=== PATIENT | female | born 1990 | race Two or more races ===

== ENCOUNTER 2025-03-27 19:54 | Observation (INO) | payer SELFPAY ==
[2025-03-27] VITALS (9 sets, daily range): BP systolic 136; BP diastolic 71; PULSE 99–116; RESP 18–99; TEMP 36.8; O2SAT 97–99; BMI 25.0
== END 2025-03-27 20:40 | disposition home or self-care (01) ==
PROVIDERS: Admitting Provider Obstetrics & Gynecology; Visit Provider Obstetrics & Gynecology
DX: O46.93 Antepartum hemorrhage, unspecified, third trimester (principal); Z3A.36 36 weeks gestation of pregnancy
CPT/HCPCS: 59025; 59899

== ENCOUNTER 2025-04-18 01:20 | Observation (INO) | payer SELFPAY ==
[2025-04-18 01:32] VITALS: BMI 25.7
[2025-04-18 01:39] VITALS: BP 120/67; PULSE 110; RESP 17; RESP 98; TEMP 37
== END 2025-04-18 02:23 | disposition home or self-care (01) ==
PROVIDERS: Admitting Provider Obstetrics & Gynecology; Visit Provider Obstetrics & Gynecology
DX: O26.853 Spotting complicating pregnancy, third trimester (principal); Z3A.39 39 weeks gestation of pregnancy
CPT/HCPCS: 59025; 59899

== ENCOUNTER 2025-04-21 15:18 | Inpatient (IN) | payer MEDICAID, SELFPAY ==
[2025-04-21] VITALS (107 sets, daily range): BP systolic 107–141; BP diastolic 51–78; PULSE 87–133; RESP 16–98; TEMP 36.9–38.1; O2SAT 96–100; BMI 25.6
[2025-04-21 15:51] LABS: ROM Kit Exp Date# 01/28/28; ROM Kit Lot # 5810437; Swb Mxed in Solvent 1 min? Yes
[2025-04-21 15:52] LABS: ROM Swab Mixed By: AYONJ; Rupture of Fetal Membranes Negative (Negative)
--- NOTE | 2025-04-21 16:14 | XR_ITS ---
Examination: Biophysical profile, ultrasound Date and time of exam: April 21, 2025, 1629 hrs. Indications: Leaking amniotic fluid today Technique: Multiple transabdominal sonographic images of the pelvis abdomen obtained. Attention is directed to the breathing movement, gross body movement, amniotic fluid volume and tone. Findings: Amniotic fluid index 9.5 cm Total biophysical profile is 8 of 8. breathing movement is 2. Gross body movement is 2. tone is 2. Qualitative amniotic fluid volume is 2 Impression: Biophysical profile is 8 of 8.
--- NOTE | 2025-04-21 16:14 | XR_ITS ---
Examination: Complete OB ultrasound greater than 14 weeks Date and time of exam: April 21, 2025, 1637 hrs. Indications: Leaking amniotic fluid today. Findings: Viable intrauterine single fetus with single amniotic sac presentation cephalic. hall monitor 158 BPM. Placenta anterior grade 2. Three-vessel umbilical cord seen. Amniotic fluid index 5.1 cm. spine anterior. Cervix 3.5 cm. Ovaries obscured by bowel gas. Composite estimated gestational age based on BPD, head circumference, abdominal circumference, femur length is 40 weeks 2 days Estimated weight 4179.1 g. Survey of intracranial anatomy, spinal anatomy, abdominal anatomy, four-chamber heart performed with no abnormalities identified. Impression: Viable intrauterine gestation cephalic presentation.
[2025-04-21 16:38] LABS: Basophils # (Auto) 0.1 Thou/mm3 (0.0-0.2); Basophils % (Auto) 0 % (0-2.5); Eosinophils # (Auto) 0.6 Thou/mm3 (0.0-0.5); Eosinophils % (Auto) 4 % (0-10); Hematocrit 31.5 % (36.0-46.0); Hemoglobin 9.7 g/dL (12.0-16.0); Immature Granulocytes Auto 0.23 Thou/mm3 (0.00-0.00); Lymphocytes # (Auto) 1.9 Thou/mm3 (1.0-4.8); Lymphocytes % (Auto) 14 % (10-50); Mean Corpuscular HGB Conc 30.8 g/dl (31.0-37.0); Mean Corpuscular Hemoglobin 24.9 pg (25.0-35.0); Mean Corpuscular Volume 81 fL (80-100); Monocytes # (Auto) 1.1 Thou/mm3 (0.0-0.8); Monocytes % (Auto) 8 % (0-12); Neutrophils # (Auto) 9.9 Thou/mm3 (1.8-7.7); Neutrophils % (Auto) 72 % (37-80); Nucleated Red Blood Cell # 0.02 Thou/mm3 (0.00-0.00); Nucleated Red Blood Cell % 0 /100 WBC (0); Platelet Count 292 Thou/mm3 (140-440); RDW Standard Deviation 52.4 fL (36.4-46.3); Red Blood Count 3.89 Miln/mm3 (4.00-5.20); White Blood Count 13.8 Thou/mm3 (3.6-11.0)
[2025-04-21] MEDS: RINGERS LACTATED 1000 ML 1,000 ML 100 ML IV (17:35)
[2025-04-21] MEDS: fentaNYL CIT INJ 50 mCg/ML AMP 2ML 100 MCG IVP (20:42)
[2025-04-21 20:58] LABS: Syphilis Reactive (Nonreactive)
[2025-04-21 21:00] LABS: MHATP/TP-PA* See Sep Rpt
[2025-04-21] MEDS: ACETAMINOPHEN IVPB 1,000 MG/100 ML VIAL 250 MG IV (21:46)
[2025-04-21] MEDS: Ampicillin Inj 2,000 MG in SODIUM CHLORIDE 0.9% (POP) 100 ML 200 MG IV (22:18)
[2025-04-21] MEDS: GENTAMICIN/NS 80 MG IVPB 80 MG in PRE-MIXED 1 BAG 50 MG IV (23:04)
[2025-04-22] VITALS (156 sets, daily range): BP systolic 94–136; BP diastolic 52–83; PULSE 84–194; RESP 15–42; TEMP 36.3–37.2; O2SAT 86–100
[2025-04-22] MEDS: OXYTOCIN in NS 30 units 30 UNIT/500 ML BAG IV (02:54)
[2025-04-22] MEDS: RINGERS LACTATED 1000 ML 1,000 ML 100 ML IV (03:11)
[2025-04-22] MEDS: Ampicillin Inj 2,000 MG in SODIUM CHLORIDE 0.9% (POP) 100 ML 200 MG IV (05:33)
--- NOTE | 2025-04-22 06:59 | PD.LDHP ---
Documentation for date of: 04/21/25 OB Labor/Induct. HPI History of Present Illness Chief complaint: Leaking and contractions : 4 Para: 2 Term pregnancies: 2 pregnancies: 0 Living children: 2 History of Abortions: Spontaneous and Elective: 1 History of Vaginal deliveries: 2 History of sections: No History of : No REESE: 04/21/25 Gestational Age (weeks): 40 Gestational Age (days): 0 History of present illness: 34-year-old 4 para 2 presenting to labor and delivery triage at 40 weeks and 0 days with leaking and contractions every 5 to 10 minutes. When patient presented to the triage room she was noted to have gross leaking of fluids soaking her pants as well as soaking the Chux pad. Cervical exam was 450 and -3 patient was admitted for labor/augmentation. Patient receives care at [facility] with Dr. Mike. GBS unknown. History of Present Adequate Care: Yes Labs Labs: Positive: RPR and Rubella Titre, Negative: Hepatitis B, HIV, Chlamydia, Gonorrhea and Group Beta Strep and Unknown: Herpes Type 1, Herpes Type 2 and Covid-19 Past Medical History Surgical History SURGICAL: Negative Section Meds Home Medications and Allergies Home Medications ?Medication ?Instructions ?Recorded ?Confirmed ?Type ferrous sulfate 325 mg (65 mg 325 mg PO QDAY 04/21/25 04/21/25 History iron) tablet vitamins no.102-iron 90 1 cap PO QDAY 04/21/25 04/21/25 History mg-folate 1 mg-dha 200 mg capsule Allergies Allergy/AdvReac Type Severity Reaction Status Date / Time No Known Allergies Allergy Unknown Verified 04/22/25 03:58 OB Exam Physical Exam Vital signs: Temp Pulse Resp BP Pulse Ox O2 Del Method 98.7 F 114 H 18 126/69 98 Room Air 04/22/25 00:53 04/22/25 06:29 04/21/25 23:57 04/22/25 06:29 04/22/25 06:57 04/22/25 00:53 Constitutional Constitutional: no acute distress Routine HEENT Exam Head: Present normocephalic and atraumatic Eye: Present EOMI and PERRL ENT: Present mucous membranes moist Routine Neck Exam Neck: Present supple and trachea midline Routine Cardiovascular Exam Cardiovascular: Present RRR Routine Abdominal Exam Abdominal: Present soft and normoactive bowel sounds Detailed Labor and Delivery Exam Dilation (cm): 4.5 Effacement (%): 50 Cervix position: mid station: -3 Presentation: Vertex Routine Extremities Exam Extremities: Present full ROM Routine Skin Exam Skin: Present intact, dry and warm Routine Neurological Exam Neurological: Present alert, oriented X3 and CN II-XII intact Routine Psychiatric Exam Psychiatric: Present normal affect and normal thought process OB Results Labs 04/21/25 16:20 Labs: Short CBC 04/21/25 Range/Units 16:20 WBC 13.8 H (3.6-11.0) Thou/mm3 Hgb 9.7 L (12.0-16.0) g/dL Hct 31.5 L (36.0-46.0) % Plt Count 292 (140-440) Thou/mm3 OB Assessment & Plan Assessment and Plan (1) Spontaneous rupture of membranes: Status: Acute Assessment and plan: 34-year-old 4 para 2 presenting with spontaneous rupture of membranes and early labor Admit to inpatient status for labor/augmentation as needed IV access, labs to include CBC type and screen RPR Start ampicillin for unknown GBS Epidural when desired Continuous maternal monitoring Anticipate vaginal delivery
[2025-04-22] MEDS: ceFAZolin/D5W 2 GM IV 2 GM/100 ML BAG IV ×3 (08:17→21:52)
[2025-04-22] MEDS: FAMOTIDINE INJ 10 MG/ML VIAL 2 ML 20 MG IV (08:18)
--- NOTE | 2025-04-22 08:18 | PD.LDPN ---
Documentation for date of: 04/22/25 OB Labor Progress Note Pain Control Pain control: epidural Pelvic Exam Dilation (cm): c Effacement (%): 100 station: +1 Amniotic membrane status: Ruptured Contractions Monitor mode: External Contraction frequency: 2-4 Contraction intensity: Moderate Status status: Category l Assessment and Plan Pitocin rate (mU/min): 5 Assessment: active labor Comments: Patient was complete around 5:00 in the morning and labored down till 7:00 in the morning when I took over her care. She was C/100/+1 we started pushing at 715 till approximately 810. Patient has a suspected 10 pound baby and its direct OP. I did attempted a vacuum x 2 due to maternal exhaustion and there were 2 pop-off's and very little descent of the head. At this point patient is consented for a primary low-transverse section. She states her last baby was born 7 years ago and was over 10 pounds she states she has required vacuum deliveries for all of her children so far. Patient is consented about the risks of procedure including bleeding infection blood transfusion damage to bowel bladder blood vessels other organs and prolonged hospital stay should any complications occur. All consents were signed all questions were answered. Father the baby is at bedside. Of note this is a new father of the baby.
[2025-04-22] MEDS: KETOROLAC INJ 30 MG/ML VIAL IVP (10:27)
[2025-04-22] MEDS: METHYLERGONOVINE INJ 0.2 MG/ML VIAL IM (10:36)
[2025-04-22] MEDS: TRANEXAMIC ACID 1,000 MG IVPB 1,000 MG/100 ML BAG 200 MG IV (10:36)
[2025-04-22] MEDS: HYDROmorphone INJ 2 MG/ML VIAL 1 MG IVP (10:54)
[2025-04-22] MEDS: OXYTOCIN in NS 20 units 20 UNIT/1,000 ML BAG 125 UNIT IV ×3 (10:58→23:36)
[2025-04-22 11:09] LABS: Basophils # (Auto) 0.0 Thou/mm3 (0.0-0.2); Basophils % (Auto) 0 % (0-2.5); Eosinophils # (Auto) 0.0 Thou/mm3 (0.0-0.5); Eosinophils % (Auto) 0 % (0-10); Immature Granulocytes Auto 0.10 Thou/mm3 (0.00-0.00); Lymphocytes # (Auto) 1.8 Thou/mm3 (1.0-4.8); Lymphocytes % (Auto) 14 % (10-50); Mean Corpuscular HGB Conc 29.9 g/dl (31.0-37.0); Mean Corpuscular Hemoglobin 24.5 pg (25.0-35.0); Mean Corpuscular Volume 82 fL (80-100); Monocytes # (Auto) 0.8 Thou/mm3 (0.0-0.8); Monocytes % (Auto) 6 % (0-12); Neutrophils # (Auto) 10.3 Thou/mm3 (1.8-7.7); Neutrophils % (Auto) 79 % (37-80); Nucleated Red Blood Cell # 0.02 Thou/mm3 (0.00-0.00); Nucleated Red Blood Cell % 0 /100 WBC (0); Platelet Count 200 Thou/mm3 (140-440); RDW Standard Deviation 55.0 fL (36.4-46.3); Red Blood Count 2.45 Miln/mm3 (4.00-5.20); White Blood Count 12.9 Thou/mm3 (3.6-11.0)
[2025-04-22 11:20] LABS: Hematocrit 20.1 % (36.0-46.0); Hemoglobin 6.0 g/dL (12.0-16.0)
--- NOTE | 2025-04-22 15:33 | PC.NURSE ---
Addendum entered by Brittney Lopez RN, RN 04/22/25 15:46: 1119-rapid infuser in room. Original Note: 1034-Kelton SHAIKH called and notified patient has had a few clots. Orders received to give methergine and TXA 1035-Beatriz Lyles RN called and notified, asked to bring meds. 1040-Kelton SHAIKH called and notified of substantial amount of clots and fundus to the right. RN stated she is concerned; Kelton SHAIKH en route to bedside for bakri balloon placement. Charge notified; hemorrhage cart brought in room 1045-Kelton SHAIKH at bedside. 1050-large amount of clots manually expelled by Dr. Melara. Bakri balloon placed, 500mL. Stat CBC, bear hugger, and PRBCs ordered. Rapid transfuser en route
[2025-04-22 18:05] LABS: Basophils # (Auto) 0.0 Thou/mm3 (0.0-0.2); Basophils % (Auto) 0 % (0-2.5); Eosinophils # (Auto) 0.0 Thou/mm3 (0.0-0.5); Eosinophils % (Auto) 0 % (0-10); Hematocrit 30.5 % (36.0-46.0); Hemoglobin 9.8 g/dL (12.0-16.0); Immature Granulocytes Auto 0.12 Thou/mm3 (0.00-0.00); Lymphocytes # (Auto) 2.1 Thou/mm3 (1.0-4.8); Lymphocytes % (Auto) 15 % (10-50); Mean Corpuscular HGB Conc 32.1 g/dl (31.0-37.0); Mean Corpuscular Hemoglobin 26.4 pg (25.0-35.0); Mean Corpuscular Volume 82 fL (80-100); Monocytes # (Auto) 1.0 Thou/mm3 (0.0-0.8); Monocytes % (Auto) 7 % (0-12); Neutrophils # (Auto) 10.7 Thou/mm3 (1.8-7.7); Neutrophils % (Auto) 76 % (37-80); Nucleated Red Blood Cell # 0.02 Thou/mm3 (0.00-0.00); Nucleated Red Blood Cell % 0 /100 WBC (0); Platelet Count 202 Thou/mm3 (140-440); RDW Standard Deviation 50.4 fL (36.4-46.3); Red Blood Count 3.71 Miln/mm3 (4.00-5.20); White Blood Count 14.0 Thou/mm3 (3.6-11.0)
--- NOTE | 2025-04-22 18:44 | OBDSUM_ITS ---
Data (Ramos) Data Hx Section: No Maternal Blood Type: O Pos Rubella Titre: Positive RPR: Reactive Labs: Positive: RPR (History of syphilis tPA pending), Negative: Hepatitis B, HIV, Chlamydia and Gonorrhea and Unknown: Group Beta Strep : 4 Term: 2 : 0 Livin Abortions: Spontaneous & Theraputic: 1 Delivery Data (Ramos) Labor Data Initiation of labor: Augmentation Induction/Augmentation Agent: Pitocin ROM date: 04/21/25 ROM time: 14:25 Amniotic membrane rupture type: Spontaneous Amniotic fluid description: Clear Delivery Data EDC: 04/22/25 EDC calculated by:: LMP/early US confirmation Date of arrival to unit: 04/21/25 Onset of labor date: 04/21/25 Onset of labor time: 20:20 Complete dilation date: 04/22/25 Complete dilation time: 04:56 [place] delivery date: 04/22/25 [place] delivery time: 08:44 Gestational age (weeks): 40 Gestational age (days): 1 Placenta delivery date: 04/22/25 Placenta delivery time: 08:45 Stage 1 total time: Labor - Stage 1 Duration 8 hours and 36 minutes Delivered by: YAJAIRA SHAIKH Delivery nurse: FARA ESPARZA RN [place] nurse: TIANA FONTANEZ RN Weapons Electrical Engineering Officer at delivery: Yes (LUZ SHAIKH) Support person(s) at delivery: FOB Other staff at delivery: DODIE DON RN Delivery Method Delivery method: Low Transverse Presentation: Vertex position: OP Anesthesia Type Anesthesia Type: Epidural Delivery Room Medications Delivery room medications: Pitocin 20 u IV Placenta Placenta delivery description: Spontaneous Cord blood sent to lab: Yes cord blood collection: Cord Blood Type, Arterial Cord Blood Gas and Venous Cord Blood Gas EBL Estimated blood loss (ml): 500 Umbilical Cord cord description: 3 Vessels Additional Procedures See op report for further details Complications Complications: None Data (Ramos) Data order: 1 [place]'s gender: Male weight (gms): 4280 g Weight (pounds): 9 lbs and 7.0 ozs [place] length: 21.75 cm 1 minute: 8 5 minutes: 9
--- NOTE | 2025-04-22 18:53 | PD.GYNPROC ---
Operative Note - ELECTRIC MOTOR FITTER Procedure Date of procedure: 04/22/25 Procedure Performed: Primary low-transverse section Indication: The patient is a 34-year-old -0-1-2 with all care uncomplicated with Dr. Mike. Per patient ,she had a 10 pound baby in 2018. There is a delivery note on the chart [id number] but the baby's weight is not charted. The patient then had a miscarriage in 2019 and required a blood transfusion. She presented with ruptured membranes for Dr. Domingo and was admitted 04/21/2025. She was 40 weeks . She was 4 to set 5 cm dilated on presentation, and had labor epidural and Pitocin started. She was complete about 5:00 in the morning and labored down. She was signed out to me about 7:00 in the morning on 04/22/2025. At the time, patient was complete and +1. She pushed with me at bedside approximately 50 minutes. The patient stated she was feeling tired and that she required a vacuum delivery with both of her other babies. After consenting the patient and father of the baby at bedside about the risks of the vacuum assisted vaginal delivery, a mighty VAC delivery was attempted through 2-3 contractions. There was very little descent to the head. It was noted to be direct OP. 2 pop-off's occurred. As the head was not descending with pushing for an hour and with the vacuum attempt, the patient was consented for a primary low-transverse section. The risks of the procedure were discussed with the patient and her boyfriend including the risk of bleeding ,infection, blood transfusion, damage to bowel ,bladder, blood vessels ,other organs and prolonged hospital stay should complications occur. The patient consented for a primary section Pre-Op diagnosis: 1. IUP 40 weeks 2. Arrest of descent 3. Direct OP presentation 4. Failed vacuum attempt Post-Op diagnosis: Same Anesthesia type: Epidural Fluids: crystalloid Fluid amount (mL): 1,500 Urine output (mL): 200 Specimen: none Implants: None Estimated blood loss (ml): 500 Findings: Liveborn male in the direct OP presentation with no nuchal cord or meconium. Apgars were 8 and 9 ,weight was 9 pounds 7 ounces or 4280 g the placenta was complete spontaneous grossly normal tubes uterus ovaries appeared grossly normal. Blood gases were drawn and on the 's chart. Of note the had a 38-1/2 cm diameter head. Complications: none Narrative: After obtaining informed consent, the patient was brought back to the operating room and her epidural was bolused. She was then prepped and draped in the dorsal supine position with a leftward tilt in a normal sterile fashion. A Fishman catheter was inserted into the patient's bladder. The patient was given 2 g of Ancef by anesthesia. A Pfannenstiel skin incision was made with a scalpel and carried down to the underlying fascia. The fascia was incised in the midline, and the fascial incision extended laterally using Malik scissors. The superior aspect of the fascia was grasped with Felisha clamps, and the underlying rectus muscles dissected off using blunt and sharp dissection. This was repeated in the inferior aspect of the incision. The rectus muscles were in the midline and the peritoneum was picked up and entered sharply Metzenbaums. This was extended superiorly and inferiorly with good visualization of the bladder. The bladder blade was inserted and the uterus incised in low transverse fashion with a scalpel above the bladder reflection. The uterine incision was extended laterally using blunt dissection with the surgeon's fingers. The bag heredia was ruptured and clear fluid was noted. The bladder blade was removed and 's head was delivered atraumatically. This was done with some difficulty as the baby was direct OP and the head was very wedged in the pelvis. I was required as the surgeon to reach under the drape and into the vagina to dislodge the head and deliver the head through the incision. The baby was then delivered atraumatically. Of note the infant was crying immediately upon delivery. The cord was clamped and cut and the infant was handed off to the waiting pediatric staff. Cord blood and cord gases were sent. The placenta was then manually removed, and the uterus was exteriorized and cleared of all clots and debris. The uterine incision was repaired using 0 Monocryl in a running locked fashion. Excellent hemostasis was noted. The uterus was returned to the patient's abdominal cavity, and copious irrigation carried out with warm normal saline. The uterine incision was reexamined noted to be hemostatic. After ensuring the rectus muscles were hemostatic, these were reapproximated using running suture of 0 Monocryl. The fascia was closed with 0 Vicryl in a running fashion. The subcutaneous tissues were irrigated found to be hemostatic. The skin was closed with subcuticular suture of 4-0 Monocryl. The patient tolerated the procedure well, sponge, lap, needle, and instrument counts were correct x 2. The patient went to the recovery area awake and in stable condition. Of note the baby was doing well after delivery and in stable condition. Surgical staff Operation Date: 04/22/25 08:15 Case Staff PERCUSSION TEACHER: Julio Hill treadle cut off saw operator: Annita Osman Diagnosis Discharge Diagnosis (1) Supervision of high risk in third trimester: Status: Acute Problem details: The patient is status post primary low-transverse section 04/22/25 for arrest of descent, failed vacuum for a 9 pound 7 ounce baby. (2) care following delivery: Status: Acute (3) LGA (large for gestational age) fetus: Status: Acute Problem List Completed Was Problem List Reviewed/Reconciled?: Yes
--- NOTE | 2025-04-22 20:32 | EVENTNT_ITS ---
Documentation for date of: 04/22/25 Event Note Event Note: I was called to bedside to evaluate the patient at approximately 11:00 in the morning 04/22/2025. She is a 34-year-old -0-1-3 status post primary C- section around 8:30 in the morning 04/22/2025 for arrest of descent. The patient had pushed over an hour and had a failed vacuum proceeded by a . The was uncomplicated without atony and patient did not need uterotonic's. EBL in the operating room was approximately 500 cc. The patient started with a pre-op hemoglobin of 9.7. She already had [address] and and 2 units of blood on hold. I was called to the bedside by the RN for continued bleeding. I performed a manual exploration of the uterus and was able to remove approximately 800 cc of clots. The patient's blood pressure was in the 110s over 60s pulse was about 105 at the time. 2 units of blood were called for as was a rapid IV infuser. 2 units of FFP were called for and an additional 2 units of blood placed on hold. Patient's Fishman catheter was in place and was putting out a good amount of urine. A Bakri balloon was placed at bedside with 500 cc of normal saline. Patient was given IM Methergine and TXA. She was given 2 units of blood and 1 of FFP. A stat CBC was called for. The patient's hemoglobin came back at 6. The patient was given an additional 2 units of blood and 1 more of FFP for a total of 4 units of packed red blood cells and 2 of FFP. Of note, the patient's blood pressure and pulse remained stable throughout all of the hemorrhage episode. Her pulse remained in the 100s range and blood pressure always was around 110/60-70. The plan will be to check a CBC 6 hours after the last unit was given and in the morning. Of note the patient's hemoglobin has been as low as 7.9 in 2019 and she dropped to a 5.4 after miscarriage and did receive 2 units of blood during that incident. Will also keep the Fishman in place and the Bakri in place x 24 hours and continue IV Ancef x 24 hours post placement of the Bakri.
--- NOTE | 2025-04-22 21:08 | PC.NURSE ---
John terry connected to a griffith bag, noted with scant amount of drainage less than 5cc, bright red blood.
[2025-04-23 03:50] VITALS: BP 116/74; PULSE 106; RESP 18; TEMP 37.1; O2SAT 96
[2025-04-23 05:41] LABS: Basophils # (Auto) 0.0 Thou/mm3 (0.0-0.2); Basophils % (Auto) 0 % (0-2.5); Eosinophils # (Auto) 0.1 Thou/mm3 (0.0-0.5); Eosinophils % (Auto) 1 % (0-10); Hematocrit 28.0 % (36.0-46.0); Hemoglobin 9.1 g/dL (12.0-16.0); Immature Granulocytes Auto 0.21 Thou/mm3 (0.00-0.00); Lymphocytes # (Auto) 2.3 Thou/mm3 (1.0-4.8); Lymphocytes % (Auto) 18 % (10-50); Mean Corpuscular HGB Conc 32.5 g/dl (31.0-37.0); Mean Corpuscular Hemoglobin 27.1 pg (25.0-35.0); Mean Corpuscular Volume 83 fL (80-100); Monocytes # (Auto) 1.1 Thou/mm3 (0.0-0.8); Monocytes % (Auto) 9 % (0-12); Neutrophils # (Auto) 9.3 Thou/mm3 (1.8-7.7); Neutrophils % (Auto) 71 % (37-80); Nucleated Red Blood Cell # 0.02 Thou/mm3 (0.00-0.00); Nucleated Red Blood Cell % 0 /100 WBC (0); Platelet Count 199 Thou/mm3 (140-440); RDW Standard Deviation 51.7 fL (36.4-46.3); Red Blood Count 3.36 Miln/mm3 (4.00-5.20); White Blood Count 13.1 Thou/mm3 (3.6-11.0)
[2025-04-23] MEDS: ceFAZolin/D5W 2 GM IV 2 GM/100 ML BAG IV (06:00)
[2025-04-23 06:09] LABS: Anion Gap 9 (7-16); BUN/Creatinine Ratio 13 Ratio (12-20); Blood Urea Nitrogen < 5 mg/dL (9-23); Calcium 7.8 mg/dL (8.3-10.6); Carbon Dioxide 21.9 mMol/L (20.0-31.0); Chloride 110 mMol/L (98-107); Creatinine (Component) 0.4 mg/dL (0.6-1.3); Estimated Creatinine Clearance 207.1 mL/min (>60); Glucose 85 mg/dL (74-106); Osmolality,Calculated 277 (275-295); Potassium 3.5 mMol/L (3.4-5.1); Sodium 141 mMol/L (136-145); eGFR > 60 See Note
--- NOTE | 2025-04-23 07:36 | PD.LDPPPRG ---
Subjective Subjective Interval history: Delivery type: , after failed vacuum, hemorrhage with Bakri Patient doing well this morning. No acute complaints. Ambulating, tolerating p.o. and voiding without difficulty. HTN/Pre-Eclampsia screen: No chest pain, shortness of breath, headache, visual changes, epigastric or right upper quadrant pain. Breast-feeding, lochia diminishing. Bowel: Flatus+/ BM+ Exam Vital Signs Temp Pulse Resp BP Pulse Ox O2 Del Method 98.8 F 106 H 18 116/74 96 Room Air 04/23/25 03:50 04/23/25 03:50 04/23/25 03:50 04/23/25 03:50 04/23/25 03:50 04/23/25 03:50 Constitutional Constitutional: no acute distress Routine HEENT Exam Head: Present normocephalic and atraumatic Eye: Present EOMI and PERRL ENT: Present mucous membranes moist Routine Neck Exam Neck: Present supple and trachea midline Routine Respiratory Exam Respiratory: Present chest non-tender, lungs clear, normal breath sounds and no resp distress Routine Cardiovascular Exam Cardiovascular: Present RRR Routine Abdominal Exam Abdominal: Present soft and normoactive bowel sounds Routine Extremities Exam Extremities: Present full ROM Routine Skin Exam Skin: Present intact, dry and warm Routine Neurological Exam Neurological: Present alert, oriented X3 and CN II-XII intact Routine Psychiatric Exam Psychiatric: Present normal affect and normal thought process Objective Labs 04/23/25 05:05 04/23/25 05:05 Labs: Laboratory Results - last 24 hr 04/21/25 04/22/25 04/22/25 16:20 10:55 17:41 WBC 12.9 H 14.0 H RBC 2.45 L 3.71 L Hgb 6.0 L* D 9.8 L D Hct 20.1 L* 30.5 L D MCV 82 82 MCH 24.5 L 26.4 MCHC 29.9 L 32.1 RDW Std Deviation 55.0 H 50.4 H Plt Count 200 D 202 Neut % (Auto) 79 76 Lymph % (Auto) 14 15 [place] % (Auto) 6 7 Eos % (Auto) 0 0 Baso % (Auto) 0 0 Neut # (Auto) 10.3 H 10.7 H Lymph # (Auto) 1.8 2.1 [place] # (Auto) 0.8 1.0 H Eos # (Auto) 0.0 0.0 Baso # (Auto) 0.0 0.0 Immature Gran # (Auto) 0.10 H 0.12 H Absolute Nucleated RBC 0.02 H 0.02 H Immature Gran % 1 H 1 H Nucleated RBC % 0 0 Sodium Potassium Chloride Carbon Dioxide Anion Gap BUN Creatinine Estim Creat Clear Calc eGFR BUN/Creatinine Ratio Glucose Calculated Osmolality Calcium T.pallidum Ab (MHA) See Sep Rpt Blood Type O Positive Antibody Screen NEGATIVE Crossmatch See Detail Blood Bank Wristband ID Yes Blood Bank Comment FFP Ready 04/23/25 05:05 WBC 13.1 H RBC 3.36 L Hgb 9.1 L Hct 28.0 L MCV 83 MCH 27.1 MCHC 32.5 RDW Std Deviation 51.7 H Plt Count 199 Neut % (Auto) 71 Lymph % (Auto) 18 [place] % (Auto) 9 Eos % (Auto) 1 Baso % (Auto) 0 Neut # (Auto) 9.3 H Lymph # (Auto) 2.3 [place] # (Auto) 1.1 H Eos # (Auto) 0.1 Baso # (Auto) 0.0 Immature Gran # (Auto) 0.21 H Absolute Nucleated RBC 0.02 H Immature Gran % 2 H Nucleated RBC % 0 Sodium 141 Potassium 3.5 Chloride 110 H Carbon Dioxide 21.9 Anion Gap 9 BUN < 5 L Creatinine 0.4 L Estim Creat Clear Calc 207.1 eGFR > 60 BUN/Creatinine Ratio 13 Glucose 85 Calculated Osmolality 277 Calcium 7.8 L T.pallidum Ab (MHA) Blood Type Antibody Screen Crossmatch Blood Bank Wristband ID Blood Bank Comment Assessment & Plan Problem List (1) Supervision of high risk in third trimester: Status: Acute (2) care following delivery: Status: Acute Assessment and plan: 1. Continue routine /post-op care 2. Labs reviewed, cbc appropriate 3. Remove dressing/Fishman 4. Encourage to ambulate, shower 5. Encourage PO intake, breast feeding 6. Plan to remove Bakri in the afternoon and monitor for signs of bleeding (3) LGA (large for gestational age) fetus: Status: Acute Time Spent With Patient Time: Total time spent is greater than 50% in coordination of care (as documented) at patient's floor/unit and/or counseling patient:
[2025-04-23 08:00] VITALS: BP 103/63; PULSE 102; RESP 18; TEMP 36.9; O2SAT 98
[2025-04-23] MEDS: DOCUSATE SOD 100 MG CAPSULE PO (09:50)
[2025-04-23 11:58] VITALS: BP 121/69; PULSE 99; RESP 20; TEMP 36.8; O2SAT 95
[2025-04-23] MEDS: RINGERS LACTATED 1000 ML 1,000 ML 100 ML IV (13:32)
[2025-04-23] MEDS: KETOROLAC INJ 30 MG/ML VIAL IVP (14:11)
[2025-04-23] MEDS: IBUPROFEN TAB 400 MG TABLET 800 MG PO (20:08)
[2025-04-23 20:55] VITALS: BP 125/72; PULSE 103; RESP 16; TEMP 36.9; O2SAT 95
[2025-04-23 23:20] VITALS: BP 115/74; PULSE 97; RESP 16; TEMP 36.9; O2SAT 97
[2025-04-24 03:50] VITALS: BP 97/61; PULSE 81; RESP 16; TEMP 36.6; O2SAT 99
[2025-04-24 05:47] LABS: Basophils # (Auto) 0.0 Thou/mm3 (0.0-0.2); Basophils % (Auto) 0 % (0-2.5); Eosinophils # (Auto) 0.4 Thou/mm3 (0.0-0.5); Eosinophils % (Auto) 4 % (0-10); Hematocrit 27.3 % (36.0-46.0); Hemoglobin 8.9 g/dL (12.0-16.0); Immature Granulocytes Auto 0.24 Thou/mm3 (0.00-0.00); Lymphocytes # (Auto) 1.9 Thou/mm3 (1.0-4.8); Lymphocytes % (Auto) 17 % (10-50); Mean Corpuscular HGB Conc 32.6 g/dl (31.0-37.0); Mean Corpuscular Hemoglobin 27.1 pg (25.0-35.0); Mean Corpuscular Volume 83 fL (80-100); Monocytes # (Auto) 0.9 Thou/mm3 (0.0-0.8); Monocytes % (Auto) 8 % (0-12); Neutrophils # (Auto) 7.6 Thou/mm3 (1.8-7.7); Neutrophils % (Auto) 69 % (37-80); Nucleated Red Blood Cell # 0.03 Thou/mm3 (0.00-0.00); Nucleated Red Blood Cell % 0 /100 WBC (0); Platelet Count 217 Thou/mm3 (140-440); RDW Standard Deviation 52.9 fL (36.4-46.3); Red Blood Count 3.29 Miln/mm3 (4.00-5.20); White Blood Count 11.1 Thou/mm3 (3.6-11.0)
[2025-04-24] MEDS: IBUPROFEN TAB 400 MG TABLET 800 MG PO (06:22)
[2025-04-24] MEDS: DOCUSATE SOD 100 MG CAPSULE PO (08:41)
[2025-04-24 08:45] VITALS: BP 114/69; PULSE 87; RESP 16; TEMP 36.9; O2SAT 97
--- NOTE | 2025-04-24 09:48 | ESDS_ITS ---
DS: Providers Provider Date of admission: 04/21/25 16:10 Primary care physician: Physician No Primary/Family Admitting Provider: Conrado Domingo MD Attending Provider on Admission: Shireen Bowie MD Consults: 04/22/25 10:11 Referral Routine Comment: Attending Provider on DC: Shireen Bowie MD Discharging Provider: Shireen Bowie MD DS: Diagnosis Discharge Diagnosis (1) care following delivery: Status: Acute (2) hemorrhage: Status: Acute (3) LGA (large for gestational age) fetus: Status: Acute (4) Supervision of high risk in third trimester: Status: Acute (5) Spontaneous rupture of membranes: Status: Acute (6) Anemia: Status: Acute Problem List Completed Was Problem List Reviewed/Reconciled?: Yes Summary/Hosp Course Brief History: 34-year-old 4 para 2 presenting to labor and delivery triage at 40 weeks and 0 days with leaking and contractions every 5 to 10 minutes. When patient presented to the triage room she was noted to have gross leaking of fluids soaking her pants as well as soaking the Chux pad. Cervical exam was 450 and -3 patient was admitted for labor/augmentation. Patient receives care at [facility] with Dr. Mike. GBS unknown. -- Patient is doing well on POD 2 s/p PLTCS for failed VAVD in the setting of arrest of descent, OP presentation, macrosomia. She had hemorrhage within 3-4hr of delivery related to atony, had 800ml of clot evacuated from uterus and Bakri was placed which was removed on POD1 at 1400. She received ancef while Bakri was in place. She received 4u pRBCs and 2u FFP since she was anemic to start with Hgb 9.7, then nadired at 6 and after transfusion she is now Hgb 8.9. She has no sx of anemia. She is meeting all milestones and feels ready for discharge home. She is ambulating without lightheadedness, tolerating regular diet no n/v, spontaneously voiding without issue. She has no chest pain or shortness of breath. No fevers or chills. Pain well controlled. Vitals normal, benign exam. Hemodynamically stable with no evidence of infection. Peripartum Data Delivery Method: Low Transverse Procedures: Procedures Operation Date: 04/22/25 08:15 Actual Procedure Side Surgeon p in OB Not Applicable Paz Melara (OB Clinic)MD Status at Discharge Functional status at discharge: independent ambulation Overall status at discharge: patient is back to baseline Time Spent with Patient Time attestation: Total time spent providing and/or coordinating discharge services: Exam Vital Signs Temp Pulse Resp BP Pulse Ox O2 Del Method 98.4 F 87 16 114/69 97 Room Air 04/24/25 08:45 04/24/25 08:45 04/24/25 08:45 04/24/25 08:45 04/24/25 08:45 04/24/25 08:45 Narrative Exam General: well developed, well nourished, no acute distress, conversant Cardiac: normal heart rate Lungs: breathing without distress Abdomen: soft, post-gravid, non-tender, no rebound or guarding, pfannenstiel incision covered by dry/clean/intact prineo bandage. Incision well reapproximated. No erythema, drainage or induration. Fundus firm at u-2cm. Extremities: no pain with palpation of calves, 1+ edema of BLE Discharge Plan Plan Patient Disposition: HOME (Self Care) Patient condition on transfer: Stable Prescriptions/Referrals Prescriptions/Med Rec: New hydrocodone-acetaminophen 5-325 mg Tablet 1 tab PO Q6H MDD 4 tablets PRN (Reason: Patient rated pain 7 to 8) 7 Days Qty: 10 0RF docusate sodium 100 mg Capsule 100 mg PO BID 10 Days Qty: 20 0RF ibuprofen 800 mg tablet 800 mg PO Q8HR PRN (Reason: Pain Scale 4-6 (Moderate) 10 Days Qty: 30 0RF ferrous sulfate 325 mg (65 mg iron) tablet,delayed release (DR/EC) 325 mg PO QDAY Qty: 30 0RF Continued PNV [id number] 90 mg iron- 1 mg-200 mg capsule 1 cap PO QDAY Discontinued metronidazole [Flagyl] 500 mg tablet 500 mg PO TID Qty: 20 0RF ferrous sulfate 325 mg (65 mg iron) tablet 325 mg PO QDAY Referrals: No Primary/Family,Physician [Primary Care Provider] Patient/Caregiver Discharge Instructions Discharge Activity: activity as tolerated and other Other Discharge Activity Instructions:: vaginal rest and no heavy lifting more than 10 pounds for 6 weeks. keep incision clean and dry, do not submerge. no driving while taking narcotic. Other Discharge Diet Instructions: regular Education Materials: C Section Dc Print Language: Bulgarian Activity Restrictions/Additional Instructions: follow up with OBGYN for incision check in 1 to 2 weeks, call clinic for appointment Stand Alone Forms: [employer] Award Info., Patient Portal Info Letter Discharge Order Discharge Orders: Discharge (Routine); Ordered 04/24/25 Ordered By: Shireen Bowie Planned Discharge Date 04/24/25 (2) hemorrhage Qualifiers: hemorrhage type: other immediate Qualified Code(s): O72.1 - Other immediate hemorrhage (6) Anemia Qualifiers: Anemia type: iron deficiency Iron deficiency anemia type: other iron deficiency Qualified Code(s): D50.8 - Other iron deficiency anemias
== END 2025-04-24 13:30 | disposition home or self-care (01) | DRG 540 ==
LOC: S4SX 04-22 08:17 → S4NX 04-22 08:48
PROVIDERS: Obstetrics & Gynecology; Admitting Provider Obstetrics & Gynecology; Visit Provider Obstetrics & Gynecology
PROC: 10D00Z1 Extraction of Products of Conception, Low, Open Approach (ICD-10-PCS; CPT 59514; principal; 2025-04-22 08:00)
DX: O42.02 Full-term premature rupture of membranes, onset of labor within 24 hours of rupture (principal); O36.63X0 Maternal care for excessive fetal growth, third trimester, not applicable or unspecified; Z3A.40 40 weeks gestation of pregnancy; Z37.0 Single live birth; O66.5 Attempted application of vacuum extractor and forceps; O72.1 Other immediate postpartum hemorrhage; O62.1 Secondary uterine inertia; O90.81 Anemia of the puerperium; Z87.59 Personal history of other complications of pregnancy, childbirth and the puerperium
CPT/HCPCS: 36415; 59025; 59409; 76805; 76819; 80048; 84112; 85025; 86780; 86850; 86900; 86901; 86923; 86927; 94762; A4217; A4314; A4649; J0131; J0290; J0689; J1171; J1580; J1885; J2210; J2274; J2371; J2405; J2590; J2795; J3010; J3490; J7120; P9016; P9045; P9060; A9270; J2270